=== PATIENT | male | born 1950 | race Caucasian/White ===

== ENCOUNTER → 2016-04-30 | Outpatient (CLI) | payer MEDICARE | END | disposition home or self-care (01) | LOC: PCVCIMAG 13:21 | PROVIDERS: ATTEND Internal Medicine | DX: I25.10 Atherosclerotic heart disease of native coronary artery without angina pectoris (principal); I65.23 Occlusion and stenosis of bilateral carotid arteries; M06.9 Rheumatoid arthritis, unspecified; E78.00 Pure hypercholesterolemia, unspecified | CPT/HCPCS: 80061; 93005; 93880; G0463 ==

== ENCOUNTER → 2017-04-23 | Outpatient (CLI) | payer MEDICARE | END | disposition home or self-care (01) | LOC: PCVCIMAG 13:06 | DX: I65.23 Occlusion and stenosis of bilateral carotid arteries (principal); E78.5 Hyperlipidemia, unspecified; R93.1 Abnormal findings on diagnostic imaging of heart and coronary circulation; I45.10 Unspecified right bundle-branch block; Z82.49 Family history of ischemic heart disease and other diseases of the circulatory system; Z87.891 Personal history of nicotine dependence; Z79.82 Long term (current) use of aspirin; Z79.899 Other long term (current) drug therapy | CPT/HCPCS: 80061; 93005; 93880; G0463 ==

== ENCOUNTER → 2017-10-22 | Outpatient (CLI) | payer MEDICARE | END | disposition home or self-care (01) | LOC: PCVCCLINIC 14:32 | DX: I65.23 Occlusion and stenosis of bilateral carotid arteries (principal); R93.1 Abnormal findings on diagnostic imaging of heart and coronary circulation; E78.5 Hyperlipidemia, unspecified; M05.79 Rheumatoid arthritis with rheumatoid factor of multiple sites without organ or systems involvement; Z79.82 Long term (current) use of aspirin; Z87.891 Personal history of nicotine dependence | CPT/HCPCS: 80061; 93005; G0463 ==

== ENCOUNTER → 2018-04-07 | Outpatient (CLI) | payer MEDICARE ==
--- NOTE | 2018-04-07 15:07 | PCVCIMAG ---
APPROVED REPORT Indications Stenosis Chews tobacco Doppler Spectral Velocity Analysis PSV / EDVPSV / EDV ECA (R) 118 / 23 cm/sECA (L) 167 / 16 cm/s dICA (R) 96 / 38 cm/sdICA (L) 69 / 27 cm/s Gt (R) 109 / 41 cm/smICA (L) 119 / 37 cm/s pICA (R) 80 / 17 cm/spICA (L) 173 / 43 cm/s Bulb (R) 70 / 23 cm/sBulb (L) 95 / 24 cm/s dCCA (R) 85 / 26 cm/sdCCA (L) 87 / 27 cm/s mCCA (R) 102 / 23 cm/smCCA (L) 102 / 32 cm/s Vert (R) 58 / 17 cm/sVert (L) 43 / 14 cm/s ICA/CCA 1.28ICA/CCA 1.99 Basic Measurements Blood Pressure: Pulses: Right Left RightLeft Brachial(Sitting) 122/[id number]/78mmHgTemporal Real Time B-Mode Imaging Vert. (R)AntegradeVert. (L)Antegrade Findings The right carotid bulb has mild plaque. The right proximal internal carotid artery shows no significant stenosis. The right common carotid artery shows no significant stenosis. The right external carotid artery shows no significant stenosis. The left carotid bulb has moderate calcified plaque. The left proximal internal carotid artery shows 50-60% stenosis. The left common carotid artery shows no significant stenosis. The left external carotid artery shows >50% stenosis. Conclusion 1. Right internal carotid artery plaquing 2. Left internal carotid artery stenosis (50-60%) 3. Antegrade vertebral flow Similar to a study dated March 2017.
== END | disposition home or self-care (01) ==
LOC: PCVCIMAG 13:00
PROVIDERS: ATTEND Internal Medicine
DX: I65.23 Occlusion and stenosis of bilateral carotid arteries (principal); E78.5 Hyperlipidemia, unspecified; M05.79 Rheumatoid arthritis with rheumatoid factor of multiple sites without organ or systems involvement; E78.00 Pure hypercholesterolemia, unspecified; Z79.82 Long term (current) use of aspirin; Z87.891 Personal history of nicotine dependence
CPT/HCPCS: 36415; 80061; 93005; 93880; G0463

== ENCOUNTER → 2018-09-29 | Outpatient (CLI) | payer MEDICARE | END | disposition home or self-care (01) | LOC: PCVCCLINIC 10:00 | PROVIDERS: ATTEND Internal Medicine | DX: I25.10 Atherosclerotic heart disease of native coronary artery without angina pectoris (principal); R93.1 Abnormal findings on diagnostic imaging of heart and coronary circulation; I65.23 Occlusion and stenosis of bilateral carotid arteries; M06.09 Rheumatoid arthritis without rheumatoid factor, multiple sites; Z79.82 Long term (current) use of aspirin | CPT/HCPCS: 36415; 80061; 93005; G0463 ==

== ENCOUNTER → 2019-03-28 | Outpatient (CLI) | payer MEDICARE ==
--- NOTE | 2019-03-28 14:01 | PCVCIMAG ---
APPROVED REPORT Indications Stenosis Doppler Spectral Velocity Analysis PSV / EDVPSV / EDV ECA (R) 70 / 13 cm/sECA (L) 230 / 46 cm/s dICA (R) 64 / 28 cm/sdICA (L) 99 / 38 cm/s Gt (R) 86 / 36 cm/smICA (L) 129 / 37 cm/s pICA (R) 82 / 21 cm/spICA (L) 173 / 41 cm/s Bulb (R) 55 / 18 cm/sBulb (L) 96 / 27 cm/s dCCA (R) 79 / 20 cm/sdCCA (L) 83 / 24 cm/s mCCA (R) 84 / 25 cm/smCCA (L) 90 / 32 cm/s Vert (R) 46 / 14 cm/sVert (L) 31 / 11 cm/s ICA/CCA 1.09ICA/CCA 2.08 Basic Measurements Blood Pressure: Pulses: Right Left RightLeft Brachial(Sitting) 146/85ffBx580/98mmHgTemporal Real Time B-Mode Imaging Vert. (R)AntegradeVert. (L)Antegrade Findings RIGHT CAROTID: The carotid bulb has mild plaque. The proximal internal carotid artery shows <40% stenosis. The common carotid artery shows no significant stenosis. The external carotid artery shows no significant stenosis. LEFT CAROTID: The carotid bulb has moderate plaque. The proximal internal carotid artery shows 60% stenosis. The common carotid artery shows no significant stenosis. The external carotid artery shows 70% stenosis. Conclusion <40% stenosis of the right internal carotid artery with mild plaque. 60% stenosis of the left internal carotid artery with moderate plaque. No change since March 2018 study. Incidental note is made of a 1.2 x 0.9 cm partially solid/partially cystic nodule inferior right thyroid lobe which is unchanged since March 2017 study.
== END | disposition home or self-care (01) ==
LOC: PCVCIMAG 13:20
PROVIDERS: ATTEND Internal Medicine
DX: I65.23 Occlusion and stenosis of bilateral carotid arteries (principal); E78.5 Hyperlipidemia, unspecified; M06.09 Rheumatoid arthritis without rheumatoid factor, multiple sites; E78.00 Pure hypercholesterolemia, unspecified; I25.10 Atherosclerotic heart disease of native coronary artery without angina pectoris; Z83.3 Family history of diabetes mellitus; Z82.49 Family history of ischemic heart disease and other diseases of the circulatory system; Z87.891 Personal history of nicotine dependence; Z88.1 Allergy status to other antibiotic agents
CPT/HCPCS: 36415; 80061; 93005; 93880; G0463